=== PATIENT | female | born 1930 | race Caucasian/White ===

== ENCOUNTER 2017-12-21 09:12 | Emergency (ER) | payer OTHER, BC ==
[2017-12-21 09:25] VITALS: BMI 20.6
--- NOTE | 2017-12-21 09:41 | PDOC ---
History of Present Illness - General History Source: Patient Exam Limitations: No Limitations - History of Present Illness Initial Comments: 12/21/17 10:25 The patient is a 87 year old female, with a significant past medical atrial fibrillation s/p pacemaker(on Coumadin), hypertension, hypercholesterolemia, transient TIA, and hypothyroidism who presents to the emergency department with left lower extremity swelling for several weeks. The patient reports intermittent left ankle swelling with associated pain with walking. She denies any associated trauma, recent falls, history of gout, erythema or ecchymosis to the area. The patient rates her pain a 5/10. She states she has been taking Tylenol for her symptoms with mild relief. Patient reports minimal improvement of swelling, which prompted her ED visit today. She denies any recent fever or chills. She denies any chest pain, shortness of breath, diaphoresis, or palpitations. She denies any nausea or vomiting. She denies any recent travel or sick contacts. Allergies: Erythromycin base. Past Surgical History: Pacemaker placement. Bilateral knee replacement. Cholecystectomy. 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 Lives at home. She denies tobacco, ETOH and recreational drug use. PCP: Dr. Gatica <Lucia Castillo - Last Filed: 12/21/17 11:12> <Kathi Wheeler - Last Filed: 12/21/17 11:49> - General Chief Complaint: Chronic pain Stated Complaint: SWOLLEN LT FOOT Time Seen by Provider: 12/21/17 09:36 Past History <Lucia Castillo - Last Filed: 12/21/17 11:12> - Past Medical History Cardiac Disorders: Yes (afib ON Coumadin) COPD: No HTN: Yes Hypercholesterolemia: Yes Thyroid Disease: Yes Other medical history: PACEMAKER - Surgical History Cardiac Surgery: Yes (pacemaker) Cholecystectomy: Yes - Immunization History Immunization Up to Date: Yes - Suicide/Smoking/Psychosocial Hx Smoking Status: No Smoking History: Never smoked Have you smoked in the past 12 months: No Number of Cigarettes Smoked Daily: 0 Hx Alcohol Use: No Drug/Substance Use Hx: No Substance Use Type: None Hx Substance Use Treatment: No <Kathi Wheeler - Last Filed: 12/21/17 11:49> - Past Medical History Allergies/Adverse Reactions: Allergies Allergy/AdvReac Type Severity Reaction Status Date / Time erythromycin base Allergy Verified 12/21/17 09:25 [Erythromycin Base] Home Medications: Ambulatory Orders Diltiazem Cd [Cardizem Cd -] 120 mg PO DAILY 03/07/13 Levothyroxine [Synthroid -] 50 mcg PO DAILY 03/07/13 Metoprolol Succinate [Toprol XL -] 100 mg PO DAILY 03/07/13 Acetaminophen [Tylenol .Regular Strength -] 650 mg PO Q4H PRN #0 tablet Warfarin Na [Coumadin -] 2 mg PO HS 12/21/17 Review of Systems - Review of Systems Able to Perform ROS?: Yes Comments:: 12/21/17 10:25 GENERAL/CONSTITUTIONAL: No: fever, chills, weakness, loss of appetite. HEAD, EYES, EARS, NOSE AND THROAT: No: change in vision, ear pain, discharge, sore throat, throat swelling. CARDIOVASCULAR: No: chest pain, lightheadedness, palpitations, syncope RESPIRATORY: No: cough, shortness of breath, wheezing, hemoptysis, stridor. GASTROINTESTINAL: No: nausea, vomiting, abdominal cramping, diarrhea, rectal bleeding, constipation. GENITOURINARY: No: dysuria, hematuria, frequency, urgency, flank pain. MUSCULOSKELETAL: Yes: left ankle swelling and pain. No: back pain, neck pain, joint pain. SKIN AND BREASTS: No: lesions, pallor, rash or easy bruising. NEUROLOGIC: No: headache, vertigo, paresthesias, weakness ENDOCRINE: No: unexplained weight gain or loss HEMATOLOGIC/LYMPHATIC: No: anemia, easy bleeding, swelling nodes <Castillo,Giomilsy - Last Filed: 12/21/17 11:12> *Physical Exam - Vital Signs Last Vital Signs Temp Pulse Resp BP Pulse Ox 98.0 F 93 H 20 133/83 97 12/21/17 09:22 12/21/17 09:22 12/21/17 09:22 12/21/17 09:22 12/21/17 09:22 - Physical Exam Comments: 12/21/17 10:25 GENERAL: The patient is in no acute distress. HEAD: Normal with no signs of trauma. EYES: PERRLA, EOMI, sclera anicteric, conjunctiva clear. ENT: Ears normal, nares patent, oropharynx clear without exudates. Moist mucous membranes. NECK: Normal range of motion, supple without lymphadenopathy, JVD, or masses. LUNGS: Breath sounds equal, clear to auscultation bilaterally. No wheezes, and no crackles. HEART: Irregularly irregular. No murmurs, rubs or gallops. ABDOMEN: Soft, nontender, normoactive bowel sounds. No guarding, no rebound. EXTREMITIES: Normal range of motion, no edema. No clubbing or cyanosis. No erythema, or tenderness. NEUROLOGICAL: Cranial nerves II through XII grossly intact. Normal speech. No focal neurological deficits. MUSCULOSKELETAL: +Left lower extremity edema. Back non-tender to palpation, no CVA tenderness SKIN: Warm, Dry, normal turgor, no rashes or lesions noted. <Lucia Castillo - Last Filed: 12/21/17 11:12> - Vital Signs Last Vital Signs Temp Pulse Resp BP Pulse Ox 98.0 F 93 H 20 133/83 97 12/21/17 09:22 12/21/17 09:22 12/21/17 09:22 12/21/17 09:22 12/21/17 09:22 <Kathi Wheeler - Last Filed: 12/21/17 11:49> ED Treatment Course - Medications Given in the ED: ED Medications Discontinued Medications Generic Name Dose Route Start Last Admin Trade Name Keyurq PRN Reason Stop Dose Admin Acetaminophen 650 mg 12/21/17 10:06 12/21/17 10:22 Tylenol - PO 12/21/17 10:07 650 mg ONCE ONE Administration <Lucia Castillo - Last Filed: 12/21/17 11:12> Medical Decision Making - Medical Decision Making 12/21/17 10:59 The patient is a 87 yo F h/o atrial fibrillation s/p pacemaker(on Coumadin), hypertension, hypercholesterolemia, TIA and hypothyroidism who presents to the emergency department with left ankle pain and swelling. Patient denies any trauma. Denies bruising. Denies fevers or chills. Denies prior history of gout. Denies prior episodes like this. Patient states her symptoms began a possibly 2 weeks ago. She thought her pain would improve. Given it has not improved she came to the emergency department for evaluation. Admission: Left ankle is swollen, mildly tender to palpation. Patient is able to actively dorsi and plantar flex the left ankle. There is no surrounding erythema. 2+ dorsalis pedis, 2+ posterior tibialis. Sensation intact. Capillary refill less than 2 seconds. Will do: X-ray ankle foot Tylenol for pain Patient was supposed to do her INR today. Will do this for her while she is in the emergency department Pt has no calf swelling or tenderness to suggest dvt 12/21/17 11:47 Xray demonstrates osteopenia No fracture or dislocation Will can wrap Will ask pt to ice and elevate Can follow up with Ortho INR: 2.01 Clinical Impression: arthritis, initial presentation 12/21/17 11:48 <Kathi Wheeler - Last Filed: 12/21/17 11:49> *DC/Admit/Observation/Transfer - Attestations Scribe Attestion: 12/21/17 10:26 Documentation prepared by Lucia Castillo, acting as emergency medical service manager for Kathi Wheeler MD. <Lucia Castillo - Last Filed: 12/21/17 11:12> - Discharge Dispostion Admit: No <Kathi Wheeler - Last Filed: 12/21/17 11:49> Diagnosis at time of Disposition: Arthritis - Discharge Dispostion Disposition: HOME Condition at time of disposition: Stable - Referrals Referrals: Phillip Mcdowell MD [Staff Physician] - - Patient Instructions Printed Discharge Instructions: DI for Arthritis Additional Instructions: Thank you for coming in to the ER Please be sure to follow up with the Orthopedic physician and your primary care physician Return to the ER for any other concerns or complaints
[2017-12-21] MEDS ORDERED: ACETAMINOPHEN 325 MG TABLET (FP) PO ONE (10:06)
[2017-12-21] MEDS ORDERED: ACETAMINOPHEN 325 MG TABLET (FP) ONE (10:20)
[2017-12-21 11:17] LABS: INR 2.1 (0.82-1.09); PROTHROMBIN TIME (PATIENT) 23.7 SEC (9.98-11.88)
[2017-12-21 12:01] VITALS: BP 139/74; PULSE 81; TEMP 97.8
== END 2017-12-21 12:03 | disposition home or self-care (01) ==
LOC: JER 09:12
DX: M19.90 Unspecified osteoarthritis, unspecified site (principal); I48.91 Unspecified atrial fibrillation; I10 Essential (primary) hypertension; Z79.01 Long term (current) use of anticoagulants; Z95.0 Presence of cardiac pacemaker; E78.00 Pure hypercholesterolemia, unspecified; E07.9 Disorder of thyroid, unspecified
CPT/HCPCS: 36415; 73610-TC-LT-FY; 73630-TC-LT; 85610; 99283-25

== ENCOUNTER 2018-04-03 13:47 | Inpatient (IN) | payer OTHER, BC ==
[2018-04-03] MEDS ORDERED: morphine CARPU-JECT 2 MG/1 ML DISP.SYRIN IVPUSH ONE (14:30)
--- NOTE | 2018-04-03 14:45 | PDOC ---
History of Present Illness - General Chief Complaint: Injury Stated Complaint: FALL Time Seen by Provider: 04/03/18 13:54 History Source: Patient Exam Limitations: No Limitations - History of Present Illness Initial Comments: 04/03/18 14:40 Patient is an 87F with history of afib on coumadin, s/p pacemaker placement, HTN , TIA, HLD, hypothyroidism, b/l TKR, s/p cholecystectomy here today complaining of a fall. Patient states that she slipped out of a stool two days ago and landed on her hip and has had pain in her right hip since then. Patient states that she was able to walk after the event. Denies striking head, prodromal symptoms, and syncope. Patient states that she fell because she rocked back too quicklky. Patient had another fall today while walking due to the pain in her right hip. She denies any syncopal symptoms, head trauma and neck pain. Patient states that her leg just collapsed due to the pain. Patient denies fevers, chills, nausea, vomiting, chest pain and shortness of breath. Past History - Past Medical History Allergies/Adverse Reactions: Allergies Allergy/AdvReac Type Severity Reaction Status Date / Time erythromycin base Allergy Verified 04/03/18 15:04 [Erythromycin Base] Home Medications: Ambulatory Orders Metoprolol Tartrate [Lopressor] 250 mg PO DAILY 04/03/18 Warfarin Sodium [Coumadin] 3.5 mg PO DAILY 04/03/18 Cardiac Disorders: Yes (afib ON Coumadin) COPD: No HTN: Yes Hypercholesterolemia: Yes Thyroid Disease: Yes - Surgical History Cardiac Surgery: Yes (pacemaker) Cholecystectomy: Yes - Immunization History Td Vaccination: No TDAP Vaccination: No Immunization Up to Date: Yes - Suicide/Smoking/Psychosocial Hx Smoking Status: No Smoking History: Never smoked Have you smoked in the past 12 months: No Number of Cigarettes Smoked Daily: 0 Information on smoking cessation initiated: No Hx Alcohol Use: No Drug/Substance Use Hx: No Substance Use Type: None Hx Substance Use Treatment: No Review of Systems - Review of Systems Comments:: 04/03/18 14:45 GENERAL/CONSTITUTIONAL: No fever or chills. No weakness. HEAD, EYES, EARS, NOSE AND THROAT: No change in vision. No ear pain or discharge. No sore throat. CARDIOVASCULAR: No chest pain or shortness of breath RESPIRATORY: No cough, wheezing, or hemoptysis. GASTROINTESTINAL: No nausea, vomiting, diarrhea or constipation. GENITOURINARY: No dysuria, frequency, or change in urination. MUSCULOSKELETAL: No joint or muscle swelling or pain. No neck or back pain. SKIN: No rash NEUROLOGIC: No headache, vertigo, loss of consciousness, or change in strength/ sensation. ENDOCRINE: No increased thirst. No abnormal weight change HEMATOLOGIC/LYMPHATIC: No anemia, or history of blood clots. ALLERGIC/IMMUNOLOGIC: No hives or skin allergy. *Physical Exam - Vital Signs Last Vital Signs Temp Pulse Resp BP Pulse Ox 97.4 F L 91 H 18 139/106 94 L 04/03/18 14:06 04/03/18 14:06 04/03/18 14:06 04/03/18 14:06 04/03/18 14:06 - Physical Exam Comments: 04/03/18 14:45 GENERAL: Awake, alert, and fully oriented, in no acute distress R ARM: Abrasions to forearm and wrist. R LEG: Hematoma on lateral leg, 3x3cm area of visible bruising with tense quadricep, nontender compartments, no parathesias, neurovascularly intact. Able to flex right hip. HEAD: No signs of trauma, normocephalic, atraumatic EYES: PERRLA, EOMI, sclera anicteric, conjunctiva clear ENT: Auricles normal inspection, hearing grossly normal, nares patent, oropharynx clear without exudates. Moist mucosa NECK: Normal ROM, supple, no lymphadenopathy, JVD, or masses, no midline tenderess LUNGS: No distress, speaks full sentences, clear to auscultation bilaterally HEART: Regular rate and rhythm, normal S1 and S2, no murmurs, rubs or gallops, peripheral pulses normal and equal bilaterally. ABDOMEN: Soft, nontender, normoactive bowel sounds. No guarding, no rebound. No masses EXTREMITIES: Normal inspection, Normal range of motion, no edema. No clubbing or cyanosis. NEUROLOGICAL: Cranial nerves II through XII grossly intact. Normal speech, no focal sensorimotor deficits SKIN: Warm, Dry, normal turgor, no rashes or lesions noted. ED Treatment Course - LABORATORY CBC & Chemistry Diagram: 04/03/18 14:45 04/03/18 16:15 - RADIOLOGY Radiology Studies Ordered: Category Date Time Status CHEST X-RAY PORTABLE* [RAD] Stat Radiology 04/03/18 14:29 Ordered FEMUR-RIGHT [RAD] Stat Radiology 04/03/18 14:30 Ordered HIP & PELVIS-RIGHT [RAD] Stat Radiology 04/03/18 14:30 Ordered Medical Decision Making - Medical Decision Making 04/03/18 14:48 Patient is 87F with history of afib (on coumadin), s/p pacemaker, HTN, TIA, HLD , hypothyroidism, b/l TKR, cholecystectomy here today complaining of hip pain after a fall. No syncopal symptom reported, patient alert and oriented, but will evaluate heart. No signs of head trauma, denies head trauma, will not head ct. Nexus clears spine. Will evaluate leg with x-rays. Given 2mg morphine for pain. Compartment syndrome considered, but believe less likely due to lack of pain from patient. Concerned for large hematoma secondary to coumadin use. EKG shows afib with rate of 95. No st elevations/depressions. Normal axis. Normal QRS/QTc intervals. 04/03/18 16:40 Laboratory Tests 04/03/18 04/03/18 14:45 14:45 WBC 7.4 Hgb 14.0 Plt Count 238 INR > 15.00 H* CBC normal. INR over range. Given development of hematoma in right leg and concern for possible development of compartment syndrome, will give vitamin k and FFP. CT head negative. Admitted to med/surg via [facility]. 04/03/18 18:05 CT negative for fracture, does show hematoma. *DC/Admit/Observation/Transfer Diagnosis at time of Disposition: Hematoma, Supratherapeutic INR - Discharge Dispostion Condition at time of disposition: Stable Decision to Admit order: Yes - Referrals - Patient Instructions - Post Discharge Activity
[2018-04-03] MEDS ORDERED: MORPHINE SULFATE 2 MG/ML VIAL ONE (14:48)
--- NOTE | 2018-04-03 14:49 | PDOC ---
Attending Attestation - HPI HPI: 04/03/18 15:34 The patient is a 85 year old female, with a significant past medical history of Afib s/p pacemaker (on Coumadin), HTN, TIA, HLD, hypothyroidism, cholecystectomy , who presents to the emergency department with right hip pain s/p slipping and falling out of her seat a couple of days ago, as well as, a mechanical fall today secondary to her right hip pain. The patient states she noticed pain to the right hip with walking today which resulted in her falling. She denies numbness or tingling. The patient denies chest pain, shortness of breath, headache and dizziness. The patient denies fever, chills, nausea, vomit, diarrhea and constipation. The patient denies dysuria, frequency, urgency and hematuria. Allergies: erythromycin base - Medical Decision Making 04/03/18 15:34 Documentation prepared by Iwona Melo, acting as internist medical doctor md for Kathi Wheeler MD <Iwona Melo - Last Filed: 04/03/18 15:34> - Resident Resident Name: George Garcia - ED Attending Attestation I have performed the following: I have examined & evaluated the patient, The case was reviewed & discussed with the resident, I agree w/resident's findings & plan, Exceptions are as noted - Physicial Exam PE: 04/03/18 16:26 GENERAL: The patient is in no acute distress. HEAD: Normal with no signs of trauma. EYES: PERRLA, EOMI, sclera anicteric, conjunctiva clear. ENT: Ears normal, nares patent, oropharynx clear without exudates. Moist mucous membranes. NECK: Normal range of motion, supple without lymphadenopathy, JVD, or masses. LUNGS: Breath sounds equal, clear to auscultation bilaterally. No wheezes, and no crackles. HEART:Regular rate and rhythm, normal S1 and S2 without murmur, rub or gallop. ABDOMEN: Soft, nontender, normoactive bowel sounds. No guarding, no rebound. No masses palpable. EXTREMITIES: Normal range of motion, right thigh swelling, right hip bruising NEUROLOGICAL: Cranial nerves II through XII grossly intact. Normal speech. No focal neurological deficits. MUSCULOSKELETAL: Back non-tender to palpation SKIN: Warm, Dry, normal turgor, no rashes or lesions noted. - Medical Decision Making 04/03/18 14:49 EKG: Afib rate of 95 bpm, axis nml, intervals nml, no st elevations or depressions 04/03/18 16:27 CT head: no ICH, thalamic infarct indeteminant age 0704/03/18 16:28 Laboratory Tests 04/03/18 04/03/18 14:45 14:45 WBC 7.4 Hgb 14.0 Hct 41.3 Plt Count 238 INR > 15.00 H* Right thigh hematoma Will give FFP and Vit K Will admit Will monitor for compartment syndrome <Kathi Wheeler - Last Filed: 04/05/18 08:28>
[2018-04-03 14:52] LABS: BASO % 0.8 % (0-2.0); EOS % 1.5 % (0-4.5); HEMATOCRIT 41.3 % (32.4-45.2); LYMPH % 11.6 % (8-40); MCH 32.9 pg (25.7-33.7); MCHC 33.8 g/dl (32.0-36.0); MEAN CELL VOLUME 97.2 fl (80-96); MEAN PLT VOLUME 8.2 fl (7.5-11.1); MONO % 7.1 % (3.8-10.2); PLATELET COUNT 238 K/MM3 (134-434); RBC 4.25 M/mm3 (3.60-5.2); RDW 13.5 % (11.6-15.6); WHITE BLOOD COUNT 7.4 K/mm3 (4.0-10.0)
[2018-04-03 15:43] LABS: INR > 15.00 (0.82-1.09)
[2018-04-03] MEDS ORDERED: PHYTONADIONE 10 MG/1 ML AMP IVPB ONE (15:52)
[2018-04-03] MEDS ORDERED: PHYTONADIONE 10 MG/1 ML AMP ONE (16:24)
[2018-04-03 17:17] LABS: ALBUMIN 3.5 g/dl (3.4-5.0); ANION GAP 10 (8-16); BILIRUBIN,TOTAL 0.5 mg/dL (0.2-1.0); BLOOD UREA NITROGEN 19 mg/dL (7-18); CALCIUM 8.9 mg/dL (8.5-10.1); CHLORIDE 104 mmol/L (98-107); CO2 26 mmol/L (21-32); CREATININE 0.7 mg/dL (0.55-1.02); GLUCOSE,RANDOM 139 mg/dL (74-106); MAGNESIUM 2.3 mg/dL (1.8-2.4); PHOSPHOROUS 4.4 mg/dL (2.5-4.9); POTASSIUM 3.9 mmol/L (3.5-5.1); SGOT/AST 25 U/L (15-37); SGPT/ALT 28 U/L (12-78); SODIUM 140 mmol/L (136-145)
[2018-04-03 17:19] LABS: ALK PHOS 91 U/L (45-117)
--- NOTE | 2018-04-03 19:37 | HP ---
Admitting History and Physical - Primary Care Physician PCP: Lorie Cuevas - Admission History of Present Illness: 85 year old female, with a significant past medical history of Afib s/p pacemaker (on Coumadin), HTN, TIA, HLD, hypothyroidism, cholecystectomy, who presents to the emergency department with right hip pain s/p slipping and falling out of her seat a couple of days ago, as well as, a mechanical fall today secondary to her right hip pain. The patient states she noticed pain to the right hip with walking today which resulted in her falling. She denies numbness or tingling. The patient denies chest pain, shortness of breath, headache and dizziness. The patient denies fever, chills, nausea, vomit, diarrhea and constipation. The patient denies dysuria, frequency, urgency and hematuria. 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 Cardiovascular: Yes: AFIB, HTN, Hyperlipdemia - Past Surgical History Past Surgical History: Yes: Permanent Pacemaker - Smoking History Smoking history: Never smoked Have you smoked in the past 12 months: No Aproximately how many cigarettes per day: 0 - Alcohol/Substance Use Hx Alcohol Use: No Home Medications - Allergies Allergies/Adverse Reactions: Allergies Allergy/AdvReac Type Severity Reaction Status Date / Time erythromycin base Allergy Verified 04/03/18 15:04 [Erythromycin Base] - Home Medications Home Medications: Ambulatory Orders Diltiazem Cd [Cardizem Cd -] 120 04/03/18 Levothyroxine Sodium [Levo-T] 50 mcg PO 04/03/18 Metoprolol Tartrate [Lopressor] 225 mg PO DAILY 04/03/18 Warfarin Sodium [Coumadin] 3.5 mg PO HS 04/03/18 Physical Examination Vital Signs: Vital Signs Temperature 97.4 F L 04/03/18 14:06 Pulse Rate 92 H 04/03/18 16:35 Respiratory Rate 18 04/03/18 16:35 Blood Pressure 108/72 04/03/18 16:39 O2 Sat by Pulse Oximetry (%) 95 04/03/18 16:35 Constitutional: Yes: No Distress HENT: Yes: Atraumatic Neck: Yes: Supple Cardiovascular: Yes: Regular Rate and Rhythm Respiratory: Yes: CTA Bilaterally Gastrointestinal: Yes: Normal Bowel Sounds Extremities: Yes: Other (bruis R fore arm hematoma R thigh) Neurological: Yes: Alert, Oriented Labs: CBC, BMP 04/03/18 14:45 04/03/18 16:15 Problem List - Problems (1) Hematoma Assessment/Plan: R franca monitor hold coumadin daily pt/inr Code(s): T14.8XXA - OTHER INJURY OF UNSPECIFIED BODY REGION, INITIAL ENCOUNTER (2) Supratherapeutic INR Code(s): R79.1 - ABNORMAL COAGULATION PROFILE (3) HTN (hypertension) Assessment/Plan: on meds stable Code(s): I10 - ESSENTIAL (PRIMARY) HYPERTENSION Qualifiers: Hypertension type: essential hypertension Qualified Code(s): I10 - Essential (primary) hypertension (4) Hyperlipidemia Code(s): E78.5 - HYPERLIPIDEMIA, UNSPECIFIED Qualifiers: Hyperlipidemia type: unspecified Qualified Code(s): E78.5 - Hyperlipidemia , unspecified (5) Fall Assessment/Plan: tripped and fell pt eval Code(s): W19.XXXA - UNSPECIFIED FALL, INITIAL ENCOUNTER Qualifiers: Encounter type: sequela Qualified Code(s): W19.XXXS - Unspecified fall, sequela Assessment/Plan Laboratory Tests 04/03/18 04/03/18 04/03/18 14:45 14:45 14:45 WBC 7.4 RBC 4.25 Hgb 14.0 Hct 41.3 MCV 97.2 H MCH 32.9 MCHC 33.8 RDW 13.5 Plt Count 238 MPV 8.2 Absolute Neuts (auto) 5.8 Neutrophils % 79.0 Lymphocytes % 11.6 D Monocytes % 7.1 Eosinophils % 1.5 Basophils % 0.8 Nucleated RBC % 0 PT with INR 182.20 H INR > 15.00 H* Sodium Cancelled Potassium Cancelled Chloride Cancelled Carbon Dioxide Cancelled Anion Gap Cancelled BUN Cancelled Creatinine Cancelled Creat Clearance w eGFR Cancelled Random Glucose Cancelled Calcium Cancelled Phosphorus Magnesium Cancelled Total Bilirubin Cancelled AST Cancelled ALT Cancelled Alkaline Phosphatase Cancelled Creatine Kinase Cancelled Troponin I Cancelled Total Protein Cancelled Albumin Cancelled Blood Type Antibody Screen 04/03/18 04/03/18 16:15 16:15 WBC RBC Hgb Hct MCV MCH MCHC RDW Plt Count MPV Absolute Neuts (auto) Neutrophils % Lymphocytes % Monocytes % Eosinophils % Basophils % Nucleated RBC % PT with INR INR Sodium 140 Potassium 3.9 Chloride 104 Carbon Dioxide 26 Anion Gap 10 BUN 19 H Creatinine 0.7 Creat Clearance w eGFR > 60 Random Glucose 139 H Calcium 8.9 Phosphorus 4.4 Magnesium 2.3 Total Bilirubin 0.5 AST 25 ALT 28 Alkaline Phosphatase 91 Creatine Kinase 135 Troponin I < 0.02 Total Protein 6.0 L Albumin 3.5 Blood Type A POSITIVE Antibody Screen Negative Active Medications Generic Name Dose Route Start Last Admin Trade Name Freq PRN Reason Stop Dose Admin Acetaminophen 650 mg 04/03/18 19:45 Tylenol - PO Q6H PRN FEVER Levothyroxine Sodium 50 mcg 04/04/18 07:00 04/04/18 06:02 Synthroid - PO 50 mcg DAILY@0700 NASRA Administration Metoprolol Tartrate 100 mg 04/04/18 10:00 04/04/18 10:08 Lopressor - PO 100 mg DAILY NASRA Administration Morphine Sulfate 2 mg 04/03/18 21:56 Morphine Sulfate IVPUSH Q4H PRN PAIN LEVEL 4 - 6 Pt Own Med (Cardizem 1 each 04/04/18 10:00 04/04/18 10:08 Xt 120mg) PO 1 each DAILY NASRA Administration
[2018-04-03] MEDS ORDERED: ACETAMINOPHEN 325 MG TABLET (FP) PO PRN (19:45)
--- NOTE | 2018-04-03 20:21 | EKG ---
Test Reason : Blood Pressure : / mmHG Vent. Rate : 095 BPM Atrial Rate : 102 BPM P-R Int : 000 ms QRS Dur : 086 ms QT Int : 368 ms P-R-T Axes : 000 -12 -21 degrees QTc Int : 462 ms ATRIAL FIBRILLATION MODERATE VOLTAGE CRITERIA FOR LVH, MAY BE NORMAL VARIANT ABNORMAL ECG WHEN COMPARED WITH ECG OF 19-JUL-2016 08:23, ELECTRONIC DEMAND PACING IS NO LONGER PRESENT NONSPECIFIC T WAVE ABNORMALITY NOW EVIDENT IN LATERAL LEADS Confirmed by MD CHARLES, NAYAN ([id number]) on 04/03/2018 8:21:38 PM Referred By: Confirmed By:NAYAN SOTO MD
[2018-04-03 20:28] VITALS: BMI 20.9
[2018-04-03 21:33] LABS: INR 2.75 (0.82-1.09); PROTHROMBIN TIME (PATIENT) 31.1 SEC (9.7-13.0)
[2018-04-03] MEDS ORDERED: MORPHINE SULFATE 2 MG/ML VIAL IVPUSH PRN (21:56)
[2018-04-04] MEDS ORDERED: PT OWN MED DRAWER 7, Y5N ONE ×2 (04:08→09:53)
[2018-04-04] MEDS: LEVOTHYROXINE NA 50 MCG TABLET (FP) PO SCH (06:02)
[2018-04-04 07:27] LABS: BASO % 0.7 % (0-2.0); EOS % 0.6 % (0-4.5); HEMOGLOBIN 11.6 GM/dL (10.7-15.3); LYMPH % 12.9 % (8-40); MCHC 35.1 g/dl (32.0-36.0); MEAN CELL VOLUME 96.8 fl (80-96); MEAN PLT VOLUME 8.7 fl (7.5-11.1); MONO % 8.3 % (3.8-10.2); NEUT % 77.5 % (42.8-82.8); PLATELET COUNT 187 K/MM3 (134-434); RBC 3.41 M/mm3 (3.60-5.2); RDW 13.7 % (11.6-15.6); WHITE BLOOD COUNT 6.4 K/mm3 (4.0-10.0)
[2018-04-04 07:54] LABS: INR 1.14 (0.82-1.09); PROTHROMBIN TIME (PATIENT) 12.9 SEC (9.7-13.0)
[2018-04-04 07:58] LABS: ACTIVATED PTT 30.8 SECONDS (25.2-36.5)
[2018-04-04 08:05] LABS: ANION GAP 7 (8-16); BLOOD UREA NITROGEN 15 mg/dL (7-18); CALCIUM 8.5 mg/dL (8.5-10.1); CHLORIDE 103 mmol/L (98-107); CO2 29 mmol/L (21-32); CREATININE 0.5 mg/dL (0.55-1.02); GLUCOSE,RANDOM 92 mg/dL (74-106); POTASSIUM 3.5 mmol/L (3.5-5.1); SODIUM 139 mmol/L (136-145)
[2018-04-04] MEDS ORDERED: METOPROLOL TARTRATE 50 MG TABLET (FP) PO SCH (10:00)
[2018-04-04] MEDS ORDERED: METOPROLOL TARTRATE 25 MG TABLET (FP) PO SCH ×2 (10:00)
[2018-04-04] MEDS: [UNRECOGNIZED DRUG - OTHER] PO SCH (10:08)
--- NOTE | 2018-04-04 10:50 | CONSULT ---
Consult Consult Specialty:: General Surgery Referred by:: Dr. 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 She landed on her right side at that time, and knew she was sore, but didn't think too much of it and did not look for any bruising. She noticed Tuesday she was favoring her right leg a bit and limping slightly. Tuesday, she drove to [employer], and was walking toward the building on the pavement, when she lost her footing and/or right leg gave out on her, and she fell again, on her right side, abrading and bruising her right elbow and heel of hand and right thigh/leg. She drove herself home and cleaned herself up, but spoke with her niece, who advised her to go to the ER, so she called ambulance to bring her in. In the ER, she was noted to have a swollen, painful and tender right thigh and be bruised as well. Her wbc was normal, but INR was >15, and she was given vitamin K and one unit FFP was ordered. Imaging studies were done, with RLE CT showing quadriceps with hematoma /swelling/edema but no fracture. She has been admitted to medicine and started PT; surgery was asked to assess. INR was repeated at 2.75 last night and 1.14 this am. PTT is normal. Hb hydrated from 14 to 11.6. She is seen and examined in bed. She worked with PT on stairs earlier. She has eaten lunch. She has minimal pain/discomfort, but her right hip and thigh do hurt when she is standing and walking. She never looked at the area before coming to hospital, so had not noticed the bruise or swelling herself. She does not use pain medication at home for arthritis and does not use a cane or walker. - History Source History Provided By: Patient Limitations to Obtaining History: No Limitations - Past Medical History NETWORK LIAISON: Yes: CVA (no residual), TIA Cardio/Vascular: Yes: AFIB, HTN, Hyperlipdemia Reproductive: Yes: Postmenopausal Musculoskeletal: Yes: Osteoarthritis Endocrine: Yes: Hypothyroidism - Past Surgical History Past Surgical History: Yes: Permanent Pacemaker - Alcohol/Substance Use Hx Alcohol Use: Yes (occasional) History of Substance Use: reports: None - Smoking History Smoking history: Never smoked (briefly in teens) Have you smoked in the past 12 months: No - Social History ADL: Independent Home Medications - Allergies Allergies/Adverse Reactions: Allergies Allergy/AdvReac Type Severity Reaction Status Date / Time erythromycin base Allergy Verified 04/03/18 15:04 [Erythromycin Base] - Home Medications Home Medications: Ambulatory Orders Diltiazem Cd [Cardizem Cd -] 120 04/03/18 Levothyroxine Sodium [Levo-T] 50 mcg PO 04/03/18 Metoprolol Tartrate [Lopressor] 225 mg PO DAILY 04/03/18 Warfarin Sodium [Coumadin] 3.5 mg PO HS 04/03/18 Family Disease History - Family Disease History Family Disease History: CA: Father (throat (asbestos exposure, smoker)), Other: Mother (had a stroke) Review of Systems - Review of Systems Constitutional: denies: Chills, Fever Eyes: reports: Other (wears glasses). denies: Recent Change in Vision HENT: reports: Hearing Loss (bilateral hearing aids). denies: Difficult Swallowing, Throat Pain Neck: denies: Swollen Glands, Tenderness Cardiovascular: denies: Chest Pain, Palpitations Respiratory: denies: Cough, SOB Gastrointestinal: denies: Abdominal Pain, Constipation, Diarrhea, Nausea Genitourinary: reports: Incontinence (urinary at times). denies: Burning, Dysuria Musculoskeletal: reports: Joint Pain (R hip), Muscle Pain (R thigh) Integumentary: reports: Bruising (R forearm and lateral upper thigh), Wound ( abrasions on right elbow/hand). denies: Rash Neurological: reports: Unsteady Gait (R leg was bothering her, gave out). denies: Dizziness, Headache Hematology/Lymphatic: reports: Easily Bruised. denies: Excessive Bleeding Physical Exam Vital Signs: Vital Signs Temperature 98.8 F 04/04/18 06:00 Pulse Rate 101 H 04/04/18 06:00 Respiratory Rate 20 04/04/18 06:00 Blood Pressure 136/60 04/04/18 06:00 O2 Sat by Pulse Oximetry (%) 96 04/03/18 21:00 Constitutional: Yes: No Distress, Calm, Thin Eyes: Yes: Conjunctiva Clear, EOM Intact HENT: Yes: Atraumatic, Normocephalic Neck: Yes: Supple, Trachea Midline Cardiovascular: Yes: Pulse Irregular (irregularly irregular). No: Bradycardia, Tachycardia, Murmur Respiratory: Yes: Regular, CTA Bilaterally Gastrointestinal: Yes: Normal Bowel Sounds, Soft. No: Tenderness ...Rectal Exam: Yes: Deferred Renal/: No: CVA Tenderness - Left, CVA Tenderness - Right Musculoskeletal: Yes: Muscle Pain (right thigh moderately swollen, mildly firm, mildly tender; compartment soft, no skin abrasions). No: Joint Swelling Extremities: No: Cool, Cyanosis Edema: No Peripheral Pulses WNL: Yes (present but irregular) Integumentary: Yes: Bruising (ecchymotic spot at right upper lateral thigh over greater trochanter area, somewhat firm underlying), Other (small abrasions with bruising R elbow and heel of hand area, dressed) Wound/Incision: Yes: Dressing Dry and Intact (R forearm with small spot of dried blood strikethrough), Dressing Removed (small abrasion right elbow clean and dry, also one on heel of hand - bruising at proximal forearm from elbow to mid-arm; dressings replaced with telfa and wrap on elbow, telfa and tegaderm on hand). No: Draining, Bleeding Neurological: Yes: Alert, Oriented Psychiatric: Yes: Alert, Oriented Labs: CBC, BMP 04/04/18 06:00 04/04/18 06:00 CMP Sodium 139 mmol/L (136-145) 04/04/18 06:00 Potassium 3.5 mmol/L (3.5-5.1) 04/04/18 06:00 Chloride 103 mmol/L (98-107) 04/04/18 06:00 Carbon Dioxide 29 mmol/L (21-32) 04/04/18 06:00 Anion Gap 7 (8-16) L 04/04/18 06:00 BUN 15 mg/dL (7-18) 04/04/18 06:00 Creatinine 0.5 mg/dL (0.55-1.02) L 04/04/18 06:00 Creat Clearance w eGFR > 60 (>60) 04/04/18 06:00 Random Glucose 92 mg/dL (74-106) 04/04/18 06:00 Calcium 8.5 mg/dL (8.5-10.1) 04/04/18 06:00 Phosphorus 4.4 mg/dL (2.5-4.9) 04/03/18 16:15 Magnesium 2.3 mg/dL (1.8-2.4) 04/03/18 16:15 Total Bilirubin 0.5 mg/dL (0.2-1.0) 04/03/18 16:15 AST 25 U/L (15-37) 04/03/18 16:15 ALT 28 U/L (12-78) 04/03/18 16:15 Alkaline Phosphatase 91 U/L (45-117) 04/03/18 16:15 Creatine Kinase 135 IU/L (26-192) 04/03/18 16:15 Troponin I < 0.02 ng/ml (0.00-0.05) 04/03/18 16:15 Total Protein 6.0 g/dl (6.4-8.2) L 04/03/18 16:15 Albumin 3.5 g/dl (3.4-5.0) 04/03/18 16:15 INR, PTT INR 1.14 (0.82-1.09) D 04/04/18 06:00 PT was >15 on arrival, 2.75 yesterday pm, after vit K, prior to FFP transfusion PTT normal today H/H stable wbc normal K+ low Imaging - Results Cat Scan: Report Reviewed, Image Reviewed (images personally reviewed - quadriceps muscle with swelling/hematoma/edema, nothing subcutaneous, no bright density suggesting fresh blood) Problem List - Problems (1) Contusion of right thigh Assessment/Plan: admitted to medicine right quadriceps hematoma s/p fall x2 no evidence compartment syndrome minor abrasions RUE supratherapeutic INR corrected bruising and hematoma expected to resolve slowly over time - bruising/ discoloration may descend by gravity into lower leg/ankle region over time may take a month or more for hematoma to be reabsorbed aim to keep INR no more than 2-3, close monitoring no aspirin, NSAIDs pain medication prn - tylenol first line, minimize narcotics warm compresses may be used prn high fall risk - agree with physical therapy no surgical or invasive intervention indicated Thank you for the opportunity to participate in the care of this patient. Code(s): S70.11XA - CONTUSION OF RIGHT THIGH, INITIAL ENCOUNTER Qualifiers: Encounter type: initial encounter Qualified Code(s): S70.11XA - Contusion of right thigh, initial encounter (2) Hematoma Code(s): T14.8XXA - OTHER INJURY OF UNSPECIFIED BODY REGION, INITIAL ENCOUNTER (3) Fall Code(s): W19.XXXA - UNSPECIFIED FALL, INITIAL ENCOUNTER Qualifiers: Encounter type: sequela Qualified Code(s): W19.XXXS - Unspecified fall, sequela (4) Supratherapeutic INR Assessment/Plan: now in normal range would resume home dose (3.5mg) until therapeutic again - NO loading monitor closely as INR rises to keep no more than 2-3 ok for prophylactic lovenox dosing until INR above 2 Code(s): R79.1 - ABNORMAL COAGULATION PROFILE (5) Atrial fibrillation Code(s): I48.91 - UNSPECIFIED ATRIAL FIBRILLATION Qualifiers: Atrial fibrillation type: unspecified Qualified Code(s): I48.91 - Unspecified atrial fibrillation (6) HTN (hypertension) Code(s): I10 - ESSENTIAL (PRIMARY) HYPERTENSION Qualifiers: Hypertension type: essential hypertension Qualified Code(s): I10 - Essential (primary) hypertension (7) Hyperlipidemia Code(s): E78.5 - HYPERLIPIDEMIA, UNSPECIFIED Qualifiers: Hyperlipidemia type: unspecified Qualified Code(s): E78.5 - Hyperlipidemia , unspecified (8) Hypothyroidism Code(s): E03.9 - HYPOTHYROIDISM, UNSPECIFIED Qualifiers: Hypothyroidism type: unspecified Qualified Code(s): E03.9 - Hypothyroidism , unspecified (9) H/O: CVA (cerebrovascular accident) Code(s): Z86.73 - PRSNL HX OF TIA (TIA), AND CEREB INFRC W/O RESID DEFICITS
--- NOTE | 2018-04-04 13:59 | PN ---
Progress Note, Physician - Current Medication List Current Medications: Active Medications Acetaminophen (Tylenol -) 650 mg PO Q6H PRN PRN Reason: FEVER Levothyroxine Sodium (Synthroid -) 50 mcg PO DAILY@0700 [facility] Last Admin: 04/04/18 06:02 Dose: 50 mcg Metoprolol Tartrate (Lopressor -) 100 mg PO DAILY [facility] Last Admin: 04/04/18 10:08 Dose: 100 mg Morphine Sulfate (Morphine Sulfate) 2 mg IVPUSH Q4H PRN PRN Reason: PAIN LEVEL 4 - 6 Pt Own Med (Cardizem (Xt 120mg)) 1 each PO DAILY [facility] Last Admin: 04/04/18 10:08 Dose: 1 each - Objective Vital Signs: Vital Signs Temperature 98.8 F 04/04/18 06:00 Pulse Rate 101 H 04/04/18 06:00 Respiratory Rate 20 04/04/18 06:00 Blood Pressure 136/60 04/04/18 06:00 O2 Sat by Pulse Oximetry (%) 96 04/03/18 21:00 Constitutional: Yes: No Distress HENT: Yes: Atraumatic Neck: Yes: Supple Cardiovascular: Yes: Regular Rate and Rhythm Respiratory: Yes: CTA Bilaterally Gastrointestinal: Yes: Normal Bowel Sounds Extremities: Yes: Other (R thigh hematoma) Neurological: Yes: Alert, Oriented Labs: CBC, BMP 04/04/18 06:00 04/04/18 06:00 INR, PTT INR 1.14 (0.82-1.09) D 04/04/18 06:00 Problem List - Problems (1) Hematoma Assessment/Plan: R franca monitor start coumadin daily pt/inr surgical consult noted Code(s): T14.8XXA - OTHER INJURY OF UNSPECIFIED BODY REGION, INITIAL ENCOUNTER (2) Supratherapeutic INR Code(s): R79.1 - ABNORMAL COAGULATION PROFILE (3) HTN (hypertension) Assessment/Plan: on meds stable Code(s): I10 - ESSENTIAL (PRIMARY) HYPERTENSION Qualifiers: Hypertension type: essential hypertension Qualified Code(s): I10 - Essential (primary) hypertension (4) Hyperlipidemia Code(s): E78.5 - HYPERLIPIDEMIA, UNSPECIFIED Qualifiers: Hyperlipidemia type: unspecified Qualified Code(s): E78.5 - Hyperlipidemia , unspecified (5) Fall Assessment/Plan: tripped and fell pt eval Code(s): W19.XXXA - UNSPECIFIED FALL, INITIAL ENCOUNTER Qualifiers: Encounter type: sequela Qualified Code(s): W19.XXXS - Unspecified fall, sequela
[2018-04-04] MEDS: WARFARIN NA 5 MG TABLET (UD) PO SCH (17:54)
--- NOTE | 2018-04-04 18:55 | CON.CARD ---
Consult Consult Specialty:: cardiology Reason for Consultation:: hx AF; s/p fall - History of Present Illness Chief Complaint: Pt A&Oz3; no chest pain, palpitations, or dizziness; + pain at hip (s/p fall) History of Present Illness: Patient is an 87 white woman with history of afib on coumadin, s/p pacemaker placement, HTN, TIA, HLD, hypothyroidism, b/l TKR, s/p cholecystectomy here today complaining of a fall. Patient states that she slipped out of a stool two days ago and landed on her hip and has had pain in her right hip since then. Patient states that she was able to walk after the event. Denies striking head, prodromal symptoms, and syncope. Patient states that she fell because she rocked back too quickly. Patient had another fall today while walking due to the pain in her right hip. She denies any syncopal symptoms, head trauma and neck pain. Patient states that her leg just collapsed due to the pain. Patient denies fevers, chills, nausea, vomiting, chest pain and shortness of breath. - History Source History Provided By: Patient, Medical Record Limitations to Obtaining History: No Limitations - Past Medical History MAIL ROOM: Yes: TIA Cardio/Vascular: Yes: AFIB, HTN, Hyperlipdemia Reproductive: Yes: Postmenopausal ...: No Heme/Onc: No: Anemia Psych: Yes: Anxiety Musculoskeletal: Yes: Osteoarthritis Endocrine: Yes: Hypothyroidism - Past Surgical History Past Surgical History: Yes: Permanent Pacemaker - Alcohol/Substance Use Hx Alcohol Use: No History of Substance Use: reports: None - Smoking History Smoking history: Never smoked Have you smoked in the past 12 months: No Aproximately how many cigarettes per day: 0 - Social History ADL: Independent Home Medications - Allergies Allergies/Adverse Reactions: Allergies Allergy/AdvReac Type Severity Reaction Status Date / Time erythromycin base Allergy Verified 04/03/18 15:04 [Erythromycin Base] - Home Medications Home Medications: Ambulatory Orders Diltiazem Cd [Cardizem Cd -] 120 04/03/18 Levothyroxine Sodium [Levo-T] 50 mcg PO 04/03/18 Metoprolol Tartrate [Lopressor] 225 mg PO DAILY 04/03/18 Warfarin Sodium [Coumadin] 3.5 mg PO HS 04/03/18 Family Disease History - Family Disease History Family Disease History: CA: Father (throat (asbestos exposure, smoker)), Other: Mother (had a stroke) Review of Systems - Review of Systems Constitutional: reports: No Symptoms Eyes: reports: No Symptoms HENT: reports: No Symptoms Neck: reports: No Symptoms Cardiovascular: reports: No Symptoms Respiratory: reports: No Symptoms Gastrointestinal: reports: No Symptoms Genitourinary: reports: No Symptoms Breasts: reports: No Symptoms Reported Musculoskeletal: reports: Joint Pain, Muscle Pain Integumentary: reports: No Symptoms Neurological: reports: No Symptoms Endocrine: reports: No Symptoms Hematology/Lymphatic: reports: No Symptoms Psychiatric: reports: No Symptoms - Risk Factors Known Risk Factors: Yes: Age, Hypertension Vital Signs: Vital Signs Temperature 98.7 F 04/04/18 17:00 Pulse Rate 95 H 04/04/18 17:00 Respiratory Rate 18 04/04/18 17:00 Blood Pressure 117/67 04/04/18 17:00 O2 Sat by Pulse Oximetry (%) 96 04/04/18 09:00 Constitutional: Yes: Calm Eyes: Yes: WNL HENT: Yes: WNL Neck: Yes: WNL Respiratory: Yes: WNL Gastrointestinal: Yes: WNL Renal/: No: Anuria Cardiovascular: Yes: Pulse Irregular JVD: No Carotid Bruit: No PMI: Non-Displaced Heart Sounds: Yes: S1 (varies in intensity) Murmur: Yes: Systolic Murmur Musculoskeletal: Yes: Joint Stiffness, Muscle Pain Extremities: Yes: Cool Edema: No Peripheral Pulses WNL: Yes Integumentary: Yes: Bruising Neurological: Yes: WNL Psychiatric: Yes: WNL - Other Data Labs, Other Data: CBC, BMP 04/04/18 06:00 04/04/18 06:00 INR, PTT INR 1.14 (0.82-1.09) D 04/04/18 06:00 Abnormal Lab Results 04/07/18 06:30 PT with INR 20.10 H INR 1.78 H Ejection Fraction %: LVEF > or = 40 % Imaging - Results EKG: Image Reviewed (AF, controlled VR) Problem List - Problems (1) Contusion of right thigh Code(s): S70.11XA - CONTUSION OF RIGHT THIGH, INITIAL ENCOUNTER Qualifiers: Encounter type: initial encounter Qualified Code(s): S70.11XA - Contusion of right thigh, initial encounter (2) Fall Assessment/Plan: denies syncope; attributed to joint and muscle weakness. F/u with surgeon, physical therapist. Code(s): W19.XXXA - UNSPECIFIED FALL, INITIAL ENCOUNTER Qualifiers: Encounter type: sequela Qualified Code(s): W19.XXXS - Unspecified fall, sequela (3) Hematoma Code(s): T14.8XXA - OTHER INJURY OF UNSPECIFIED BODY REGION, INITIAL ENCOUNTER (4) Supratherapeutic INR Code(s): R79.1 - ABNORMAL COAGULATION PROFILE (5) Arthritis Code(s): M19.90 - UNSPECIFIED OSTEOARTHRITIS, UNSPECIFIED SITE (6) Atrial fibrillation Assessment/Plan: On metoprolol (change to ER for better 24 hour coverage). Restart warfarin when cleared by surgeon; may consider NOAC. ECHO for LVEF, chamber sizes, valve status. Keep K 4-4.5, Mg 2-2.4, PO4 2.5-3.5. TSH. Pain management. Code(s): I48.91 - UNSPECIFIED ATRIAL FIBRILLATION Qualifiers: Atrial fibrillation type: unspecified Qualified Code(s): I48.91 - Unspecified atrial fibrillation
[2018-04-04] MEDS ORDERED: METOPROLOL TARTRATE 25 MG TABLET (FP) PO ONE (18:57)
[2018-04-04] MEDS: HEPARIN NA (PORCINE) 5,000 UNITS/ML 1ML VIAL SQ SCH (22:37)
[2018-04-05] MEDS: LEVOTHYROXINE NA 50 MCG TABLET (FP) PO SCH (06:48)
[2018-04-05 07:36] LABS: INR 1.07 (0.82-1.09); PROTHROMBIN TIME (PATIENT) 12.1 SEC (9.7-13.0)
[2018-04-05] MEDS ORDERED: PT OWN MED DRAWER 7, Y5N ONE (10:53)
[2018-04-05] MEDS: HEPARIN NA (PORCINE) 5,000 UNITS/ML 1ML VIAL SQ SCH ×2 (11:01→21:24)
[2018-04-05] MEDS: [UNRECOGNIZED DRUG - OTHER] PO SCH (11:01)
--- NOTE | 2018-04-05 12:26 | PN ---
Progress Note, Physician History of Present Illness: Patient is an 87 white woman with history of afib on coumadin, s/p pacemaker placement, HTN, TIA, HLD, hypothyroidism, b/l TKR, s/p cholecystectomy here today complaining of a fall. Patient states that she slipped out of a stool two days ago and landed on her hip and has had pain in her right hip since then. Patient states that she was able to walk after the event. Denies striking head, prodromal symptoms, and syncope. Patient states that she fell because she rocked back too quicklky. Patient had another fall today while walking due to the pain in her right hip. She denies any syncopal symptoms, head trauma and neck pain. Patient states that her leg just collapsed due to the pain. Patient denies fevers, chills, nausea, vomiting, chest pain and shortness of breath. - Current Medication List Current Medications: Active Medications Acetaminophen (Tylenol -) 650 mg PO Q6H PRN PRN Reason: FEVER Heparin Sodium (Porcine) (Heparin -) 5,000 unit SQ BID [facility] Last Admin: 04/05/18 11:01 Dose: 5,000 unit Levothyroxine Sodium (Synthroid -) 50 mcg PO DAILY@0700 [facility] Last Admin: 04/05/18 06:48 Dose: 50 mcg Metoprolol Succinate (Toprol Xl -) 100 mg PO DAILY [facility] Last Admin: 04/05/18 11:02 Dose: 100 mg Morphine Sulfate (Morphine Sulfate) 2 mg IVPUSH Q4H PRN PRN Reason: PAIN LEVEL 4 - 6 Pt Own Med (Cardizem (Xt 120mg)) 1 each PO DAILY [facility] Last Admin: 04/05/18 11:01 Dose: 1 each Warfarin Sodium (Coumadin -) 5 mg PO DAILY@1800 [facility] Last Admin: 04/04/18 17:54 Dose: 5 mg - Objective Vital Signs: Vital Signs Temperature 98.1 F 04/05/18 09:00 Pulse Rate 101 H 04/05/18 09:00 Respiratory Rate 18 04/05/18 09:00 Blood Pressure 120/72 04/05/18 09:00 O2 Sat by Pulse Oximetry (%) 97 04/05/18 09:00 Eyes: Yes: WNL, Conjunctiva Clear, EOM Intact HENT: Yes: WNL, Atraumatic, Normocephalic Neck: Yes: WNL, Supple, Trachea Midline Cardiovascular: Yes: Pulse Irregular, S1, S2 Respiratory: Yes: WNL, Regular, CTA Bilaterally Gastrointestinal: Yes: WNL, Normal Bowel Sounds Genitourinary: Yes: WNL Musculoskeletal: Yes: WNL Extremities: Yes: WNL Edema: No Integumentary: Yes: WNL Neurological: Yes: WNL, Alert, Oriented ...Motor Strength: WNL Psychiatric: Yes: WNL Labs: CBC, BMP 04/04/18 06:00 04/04/18 06:00 INR, PTT INR 1.07 (0.82-1.09) 04/05/18 06:06 Assessment/Plan Problems (1) Contusion of right thigh Code(s): S70.11XA - CONTUSION OF RIGHT THIGH, INITIAL ENCOUNTER Qualifiers: Encounter type: initial encounter Qualified Code(s): S70.11XA - Contusion of right thigh, initial encounter (2) Fall Code(s): W19.XXXA - UNSPECIFIED FALL, INITIAL ENCOUNTER Qualifiers: Encounter type: sequela Qualified Code(s): W19.XXXS - Unspecified fall, sequela (3) Hematoma Code(s): T14.8XXA - OTHER INJURY OF UNSPECIFIED BODY REGION, INITIAL ENCOUNTER (4) Supratherapeutic INR Code(s): R79.1 - ABNORMAL COAGULATION PROFILE (5) Arthritis Code(s): M19.90 - UNSPECIFIED OSTEOARTHRITIS, UNSPECIFIED SITE (6) Atrial fibrillation Assessment/Plan: On metoprolol (change to ER for better 24 hour coverage). Restart warfarin when cleared by surgeon; may consider NOAC. ECHO for LVEF, chamber sizes, valve status. Keep K 4-4.5, Mg 2-2.4, PO4 2.5-3.5. TSH. Pain management. Code(s): I48.91 - UNSPECIFIED ATRIAL FIBRILLATION Qualifiers: Atrial fibrillation type: unspecified Qualified Code(s): I48.91 - Unspecified atrial fibrillation
--- NOTE | 2018-04-05 13:31 | ECHO ---
Name: CORA, JASON Exam:Adult Echocardiogram Study Date: 04/05/2018 07:19 AM Reason For Study: A-Fib Height: 62 in Weight: 114 lb BSA: 1.5 m2 MMode/2D Measurements & Calculations IVSd: 1.7 cm Ao root diam: 2.7 cm LVIDd: 3.0 cm LA dimension: 3.7 cm LVIDs: 2.4 cm LVPWd: 1.5 cm EDV(Teich): 34.8 ml LAV (MOD-bp): 97.9 ml ESV(Teich): 21.2 ml Doppler Measurements & Calculations MV E max cameron: 104.0 cm/sec AI P1/2t: 374.2 msec MV dec time: 0.18 sec AI max cameron: 442.5 cm/sec TR max cameron: 278.3 cm/sec AI max P.4 mmHg TR max P.0 mmHg AI dec slope: 346.4 cm/sec2 Med Peak E' Cameron: 4.8 cm/sec PI Vmax: 111.3 cm/sec Med E/e': 21.7 Lat Peak E' Cameron: 9.8 cm/sec Lat E/e': 10.6 Procedure A two-dimensional transthoracic echocardiogram with color flow and Doppler was performed. The patient was in atrial fibrillation with rapid ventricular response during the exam with a heart rate exceeding 100 b pm. Left Ventricle There is moderate concentric left ventricular hypertrophy. An intracavitary gradient is suspected. Up per septal hypertrophy (sigmoid septum), normal variant. The left ventricular ejection fraction is normal . The left ventricular wall motion is normal. Right Ventricle The right ventricle is not well visualized. Atria The left atrium is moderately dilated. The right atrium is moderately dilated. Mitral Valve There is mild mitral valve thickening. There is no mitral valve stenosis. There is mild to moderate m itral regurgitation. Tricuspid Valve There is mild tricuspid valve thickening. There is no tricuspid stenosis. There is moderate tricuspid regurgitation. Right ventricular systolic pressure is elevated at 40-50mmHg. Aortic Valve The aortic valve is normal in structure and function. No hemodynamically significant valvular aortic stenosis. Moderate aortic regurgitation. Pulmonic Valve The pulmonic valve is not well visualized. There is no pulmonic valvular stenosis. Trace pulmonic tamera vular regurgitation. Great Vessels The aortic root is normal size. Pericardium/Pleura There is no pericardial effusion. Interpretation Summary There is moderate concentric left ventricular hypertrophy. The left ventricular ejection fraction is normal. The left ventricular wall motion is normal. There is moderate tricuspid regurgitation. Right ventricular systolic pressure is elevated at 40-50mmHg. The left atrium is moderately dilated. The right atrium is moderately dilated. An intracavitary gradient is suspected. Upper septal hypertrophy (sigmoid septum), normal variant. Moderate aortic regurgitation. There is mild to moderate mitral regurgitation. MD Irineo Walker 04/05/2018 01:30 PM
[2018-04-05] MEDS: WARFARIN NA 5 MG TABLET (UD) PO SCH (19:00)
--- NOTE | 2018-04-05 21:13 | PN ---
Progress Note, Physician - Current Medication List Current Medications: Active Medications Acetaminophen (Tylenol -) 650 mg PO Q6H PRN PRN Reason: FEVER Heparin Sodium (Porcine) (Heparin -) 5,000 unit SQ BID [facility] Last Admin: 04/05/18 11:01 Dose: 5,000 unit Levothyroxine Sodium (Synthroid -) 50 mcg PO DAILY@0700 [facility] Last Admin: 04/05/18 06:48 Dose: 50 mcg Metoprolol Succinate (Toprol Xl -) 100 mg PO DAILY [facility] Last Admin: 04/05/18 11:02 Dose: 100 mg Morphine Sulfate (Morphine Sulfate) 2 mg IVPUSH Q4H PRN PRN Reason: PAIN LEVEL 4 - 6 Pt Own Med (Cardizem (Xt 120mg)) 1 each PO DAILY [facility] Last Admin: 04/05/18 11:01 Dose: 1 each Warfarin Sodium (Coumadin -) 5 mg PO DAILY@1800 [facility] Last Admin: 04/05/18 19:00 Dose: 5 mg - Objective Vital Signs: Vital Signs Temperature 98.4 F 04/05/18 19:00 Pulse Rate 107 H 04/05/18 19:00 Respiratory Rate 19 04/05/18 19:00 Blood Pressure 128/82 04/05/18 19:00 O2 Sat by Pulse Oximetry (%) 97 04/05/18 09:00 Constitutional: Yes: Calm HENT: Yes: Atraumatic Neck: Yes: Supple Cardiovascular: Yes: Regular Rate and Rhythm Respiratory: Yes: CTA Bilaterally Gastrointestinal: Yes: Normal Bowel Sounds Extremities: Yes: Other (R thigh hematoma resolving) Neurological: Yes: Alert, Oriented Labs: CBC, BMP 04/04/18 06:00 04/04/18 06:00 INR, PTT INR 1.07 (0.82-1.09) 04/05/18 06:06 Problem List - Problems (1) Hematoma Assessment/Plan: R franca monitor on coumadin daily pt/inr when inr 2 and above ..dc Code(s): T14.8XXA - OTHER INJURY OF UNSPECIFIED BODY REGION, INITIAL ENCOUNTER (2) Supratherapeutic INR Code(s): R79.1 - ABNORMAL COAGULATION PROFILE (3) HTN (hypertension) Assessment/Plan: on meds stable Code(s): I10 - ESSENTIAL (PRIMARY) HYPERTENSION Qualifiers: Hypertension type: essential hypertension Qualified Code(s): I10 - Essential (primary) hypertension (4) Hyperlipidemia Code(s): E78.5 - HYPERLIPIDEMIA, UNSPECIFIED Qualifiers: Hyperlipidemia type: unspecified Qualified Code(s): E78.5 - Hyperlipidemia , unspecified (5) Fall Assessment/Plan: tripped and fell pt eval Code(s): W19.XXXA - UNSPECIFIED FALL, INITIAL ENCOUNTER Qualifiers: Encounter type: sequela Qualified Code(s): W19.XXXS - Unspecified fall, sequela
[2018-04-06] MEDS: LEVOTHYROXINE NA 50 MCG TABLET (FP) PO SCH (06:09)
[2018-04-06 07:20] LABS: INR 1.55 (0.82-1.09); PROTHROMBIN TIME (PATIENT) 17.5 SEC (9.7-13.0)
[2018-04-06] MEDS ORDERED: PT OWN MED DRAWER 7, Y5N ONE ×2 (11:14→19:17)
[2018-04-06] MEDS: HEPARIN NA (PORCINE) 5,000 UNITS/ML 1ML VIAL SQ SCH ×2 (11:17→21:49)
[2018-04-06] MEDS: [UNRECOGNIZED DRUG - OTHER] PO SCH (11:18)
--- NOTE | 2018-04-06 16:22 | PN ---
Progress Note, Physician - Current Medication List Current Medications: Active Medications Acetaminophen (Tylenol -) 650 mg PO Q6H PRN PRN Reason: FEVER Heparin Sodium (Porcine) (Heparin -) 5,000 unit SQ BID [facility] Last Admin: 04/06/18 11:17 Dose: 5,000 unit Levothyroxine Sodium (Synthroid -) 50 mcg PO DAILY@0700 [facility] Last Admin: 04/06/18 06:09 Dose: 50 mcg Metoprolol Succinate (Toprol Xl -) 100 mg PO DAILY [facility] Last Admin: 04/06/18 11:18 Dose: 100 mg Morphine Sulfate (Morphine Sulfate) 2 mg IVPUSH Q4H PRN PRN Reason: PAIN LEVEL 4 - 6 Pt Own Med (Cardizem (Xt 120mg)) 1 each PO DAILY [facility] Last Admin: 04/06/18 11:18 Dose: 1 each Warfarin Sodium (Coumadin -) 5 mg PO DAILY@1800 [facility] Last Admin: 04/05/18 19:00 Dose: 5 mg - Objective Vital Signs: Vital Signs Temperature 98.6 F 04/06/18 15:38 Pulse Rate 102 H 04/06/18 15:38 Respiratory Rate 22 04/06/18 15:38 Blood Pressure 122/72 04/06/18 15:38 O2 Sat by Pulse Oximetry (%) 97 04/06/18 09:00 Constitutional: Yes: No Distress HENT: Yes: Atraumatic Neck: Yes: Supple Cardiovascular: Yes: Regular Rate and Rhythm Respiratory: Yes: CTA Bilaterally Gastrointestinal: Yes: Normal Bowel Sounds Extremities: Yes: Other (R thigh hematoma resolving) Neurological: Yes: Alert, Oriented Labs: CBC, BMP 04/04/18 06:00 04/04/18 06:00 INR, PTT INR 1.55 (0.82-1.09) H D 04/06/18 06:30 Problem List - Problems (1) Hematoma Assessment/Plan: R franca...resolving monitor start coumadin daily pt/inr surgical consult noted Code(s): T14.8XXA - OTHER INJURY OF UNSPECIFIED BODY REGION, INITIAL ENCOUNTER (2) Supratherapeutic INR Code(s): R79.1 - ABNORMAL COAGULATION PROFILE (3) HTN (hypertension) Assessment/Plan: on meds stable Code(s): I10 - ESSENTIAL (PRIMARY) HYPERTENSION Qualifiers: Hypertension type: essential hypertension Qualified Code(s): I10 - Essential (primary) hypertension (4) Hyperlipidemia Code(s): E78.5 - HYPERLIPIDEMIA, UNSPECIFIED Qualifiers: Hyperlipidemia type: unspecified Qualified Code(s): E78.5 - Hyperlipidemia , unspecified (5) Fall Assessment/Plan: tripped and fell pt eval Code(s): W19.XXXA - UNSPECIFIED FALL, INITIAL ENCOUNTER Qualifiers: Encounter type: sequela Qualified Code(s): W19.XXXS - Unspecified fall, sequela
[2018-04-06] MEDS: WARFARIN NA 5 MG TABLET (UD) PO SCH (18:40)
[2018-04-07] MEDS: LEVOTHYROXINE NA 50 MCG TABLET (FP) PO SCH (06:11)
[2018-04-07 07:16] LABS: INR 1.78 (0.82-1.09); PROTHROMBIN TIME (PATIENT) 20.1 SEC (9.7-13.0)
[2018-04-07] MEDS ORDERED: PT OWN MED DRAWER 7, Y5N ONE (09:55)
[2018-04-07] MEDS: HEPARIN NA (PORCINE) 5,000 UNITS/ML 1ML VIAL SQ SCH ×2 (10:02→21:04)
[2018-04-07] MEDS: [UNRECOGNIZED DRUG - OTHER] PO SCH (10:05)
--- NOTE | 2018-04-07 11:50 | PN ---
Progress Note, Physician Chief Complaint: Pt feels better; no chest pain or palpitations. History of Present Illness: Patient is an 87 white woman with history of afib on coumadin, s/p pacemaker placement, HTN, TIA, HLD, hypothyroidism, b/l TKR, s/p cholecystectomy here today complaining of a fall. Patient states that she slipped out of a stool two days ago and landed on her hip and has had pain in her right hip since then. Patient states that she was able to walk after the event. Denies striking head, prodromal symptoms, and syncope. Patient states that she fell because she rocked back too quickly. Patient had another fall today while walking due to the pain in her right hip. She denies any syncopal symptoms, head trauma and neck pain. Patient states that her leg just collapsed due to the pain. Patient denies fevers, chills, nausea, vomiting, chest pain and shortness of breath. - Current Medication List Current Medications: Active Medications Acetaminophen (Tylenol -) 650 mg PO Q6H PRN PRN Reason: FEVER Heparin Sodium (Porcine) (Heparin -) 5,000 unit SQ BID [facility] Last Admin: 04/07/18 10:02 Dose: 5,000 unit Levothyroxine Sodium (Synthroid -) 50 mcg PO DAILY@0700 [facility] Last Admin: 04/07/18 06:11 Dose: 50 mcg Metoprolol Succinate (Toprol Xl -) 100 mg PO DAILY [facility] Last Admin: 04/07/18 10:06 Dose: 100 mg Pt Own Med (Cardizem (Xt 120mg)) 1 each PO DAILY [facility] Last Admin: 04/07/18 10:05 Dose: 1 each Warfarin Sodium (Coumadin -) 5 mg PO DAILY@1800 [facility] Last Admin: 04/06/18 18:40 Dose: 5 mg - Objective Vital Signs: Vital Signs Temperature 98.8 F 04/07/18 05:50 Pulse Rate 104 H 04/07/18 05:50 Respiratory Rate 20 04/07/18 05:50 Blood Pressure 152/92 04/07/18 05:50 O2 Sat by Pulse Oximetry (%) 97 04/06/18 22:00 Labs: CBC, BMP 04/04/18 06:00 04/04/18 06:00 INR, PTT INR 1.78 (0.82-1.09) H 04/07/18 06:30 Problem List - Problems (1) Contusion of right thigh Code(s): S70.11XA - CONTUSION OF RIGHT THIGH, INITIAL ENCOUNTER Qualifiers: Encounter type: initial encounter Qualified Code(s): S70.11XA - Contusion of right thigh, initial encounter (2) Fall Assessment/Plan: denies syncope; attributed to joint and muscle weakness. F/u with surgeon, physical therapist. Code(s): W19.XXXA - UNSPECIFIED FALL, INITIAL ENCOUNTER Qualifiers: Encounter type: sequela Qualified Code(s): W19.XXXS - Unspecified fall, sequela (3) Hematoma Code(s): T14.8XXA - OTHER INJURY OF UNSPECIFIED BODY REGION, INITIAL ENCOUNTER (4) Supratherapeutic INR Code(s): R79.1 - ABNORMAL COAGULATION PROFILE (5) Arthritis Code(s): M19.90 - UNSPECIFIED OSTEOARTHRITIS, UNSPECIFIED SITE (6) Atrial fibrillation Assessment/Plan: On metoprolol (change to ER for better 24 hour coverage). Restart warfarin when cleared by surgeon; may consider NOAC. Normal LVEF by ECHO; moderately dilated atriae; moderate AR and TR; mild- moderate MR. Keep K 4-4.5, Mg 2-2.4, PO4 2.5-3.5. TSH: WNL (on Synthroid). Pain management. On warfarin; keep INR 2-3. Code(s): I48.91 - UNSPECIFIED ATRIAL FIBRILLATION Qualifiers: Atrial fibrillation type: unspecified Qualified Code(s): I48.91 - Unspecified atrial fibrillation
--- NOTE | 2018-04-07 11:59 | PN ---
Progress Note, Physician - Current Medication List Current Medications: Active Medications Acetaminophen (Tylenol -) 650 mg PO Q6H PRN PRN Reason: FEVER Heparin Sodium (Porcine) (Heparin -) 5,000 unit SQ BID [facility] Last Admin: 04/07/18 10:02 Dose: 5,000 unit Levothyroxine Sodium (Synthroid -) 50 mcg PO DAILY@0700 [facility] Last Admin: 04/07/18 06:11 Dose: 50 mcg Metoprolol Succinate (Toprol Xl -) 100 mg PO DAILY [facility] Last Admin: 04/07/18 10:06 Dose: 100 mg Pt Own Med (Cardizem (Xt 120mg)) 1 each PO DAILY [facility] Last Admin: 04/07/18 10:05 Dose: 1 each Warfarin Sodium (Coumadin -) 5 mg PO DAILY@1800 [facility] Last Admin: 04/06/18 18:40 Dose: 5 mg - Objective Vital Signs: Vital Signs Temperature 98.8 F 04/07/18 05:50 Pulse Rate 104 H 04/07/18 05:50 Respiratory Rate 20 04/07/18 05:50 Blood Pressure 152/92 04/07/18 05:50 O2 Sat by Pulse Oximetry (%) 97 04/06/18 22:00 Constitutional: Yes: No Distress HENT: Yes: Atraumatic Neck: Yes: Supple Cardiovascular: Yes: Regular Rate and Rhythm Respiratory: Yes: CTA Bilaterally Gastrointestinal: Yes: Normal Bowel Sounds Extremities: Yes: Other (R thig hematoma resolving) Edema: No Neurological: Yes: Alert, Oriented Labs: CBC, BMP 04/04/18 06:00 04/04/18 06:00 INR, PTT INR 1.78 (0.82-1.09) H 04/07/18 06:30 Problem List - Problems (1) Hematoma Assessment/Plan: R franca monitor on coumadin daily pt/inr when inr 2 and above ..dc Code(s): T14.8XXA - OTHER INJURY OF UNSPECIFIED BODY REGION, INITIAL ENCOUNTER (2) Supratherapeutic INR Code(s): R79.1 - ABNORMAL COAGULATION PROFILE (3) HTN (hypertension) Assessment/Plan: on meds stable Code(s): I10 - ESSENTIAL (PRIMARY) HYPERTENSION Qualifiers: Hypertension type: essential hypertension Qualified Code(s): I10 - Essential (primary) hypertension (4) Hyperlipidemia Code(s): E78.5 - HYPERLIPIDEMIA, UNSPECIFIED Qualifiers: Hyperlipidemia type: unspecified Qualified Code(s): E78.5 - Hyperlipidemia , unspecified (5) Fall Code(s): W19.XXXA - UNSPECIFIED FALL, INITIAL ENCOUNTER Qualifiers: Encounter type: sequela Qualified Code(s): W19.XXXS - Unspecified fall, sequela
--- NOTE | 2018-04-07 13:02 | PN ---
Progress Note, Physician History of Present Illness: Patient is an 87 white woman with history of afib on coumadin, s/p pacemaker placement, HTN, TIA, HLD, hypothyroidism, b/l TKR, s/p cholecystectomy here today complaining of a fall. Patient states that she slipped out of a stool two days ago and landed on her hip and has had pain in her right hip since then. Patient states that she was able to walk after the event. Denies striking head, prodromal symptoms, and syncope. Patient states that she fell because she rocked back too quicklky. Patient had another fall today while walking due to the pain in her right hip. She denies any syncopal symptoms, head trauma and neck pain. Patient states that her leg just collapsed due to the pain. Patient denies fevers, chills, nausea, vomiting, chest pain and shortness of breath. - Current Medication List Current Medications: Active Medications Acetaminophen (Tylenol -) 650 mg PO Q6H PRN PRN Reason: FEVER Heparin Sodium (Porcine) (Heparin -) 5,000 unit SQ BID [facility] Last Admin: 04/07/18 10:02 Dose: 5,000 unit Levothyroxine Sodium (Synthroid -) 50 mcg PO DAILY@0700 [facility] Last Admin: 04/07/18 06:11 Dose: 50 mcg Metoprolol Succinate (Toprol Xl -) 100 mg PO DAILY [facility] Last Admin: 04/07/18 10:06 Dose: 100 mg Pt Own Med (Cardizem (Xt 120mg)) 1 each PO DAILY [facility] Last Admin: 04/07/18 10:05 Dose: 1 each Warfarin Sodium (Coumadin -) 5 mg PO DAILY@1800 [facility] Last Admin: 04/06/18 18:40 Dose: 5 mg - Objective Vital Signs: Vital Signs Temperature 98.8 F 04/07/18 05:50 Pulse Rate 104 H 04/07/18 05:50 Respiratory Rate 20 04/07/18 05:50 Blood Pressure 152/92 04/07/18 05:50 O2 Sat by Pulse Oximetry (%) 97 04/06/18 22:00 Eyes: Yes: WNL, Conjunctiva Clear, EOM Intact HENT: Yes: WNL, Atraumatic, Normocephalic Neck: Yes: WNL, Supple, Trachea Midline Cardiovascular: Yes: Pulse Irregular, S1, S2 Respiratory: Yes: WNL, Regular, CTA Bilaterally Gastrointestinal: Yes: WNL, Normal Bowel Sounds Genitourinary: Yes: WNL Musculoskeletal: Yes: WNL Extremities: Yes: WNL Edema: No Integumentary: Yes: WNL Neurological: Yes: WNL, Alert, Oriented ...Motor Strength: WNL Psychiatric: Yes: WNL Labs: CBC, BMP 04/04/18 06:00 04/04/18 06:00 INR, PTT INR 1.78 (0.82-1.09) H 04/07/18 06:30
[2018-04-07] MEDS: WARFARIN NA 5 MG TABLET (UD) PO SCH (17:22)
[2018-04-08] MEDS: LEVOTHYROXINE NA 50 MCG TABLET (FP) PO SCH (06:11)
[2018-04-08 07:18] LABS: BASO % 1.1 % (0-2.0); EOS % 2.1 % (0-4.5); HEMATOCRIT 25.2 % (32.4-45.2); HEMOGLOBIN 8.8 GM/dL (10.7-15.3); LYMPH % 17.4 % (8-40); MCH 34.3 pg (25.7-33.7); MEAN CELL VOLUME 98.1 fl (80-96); MEAN PLT VOLUME 8.6 fl (7.5-11.1); NEUT % 69.4 % (42.8-82.8); PLATELET COUNT 269 K/MM3 (134-434); RBC 2.57 M/mm3 (3.60-5.2); RDW 13.3 % (11.6-15.6); WHITE BLOOD COUNT 7.4 K/mm3 (4.0-10.0)
[2018-04-08 07:33] LABS: ALBUMIN 3.1 g/dl (3.4-5.0); BLOOD UREA NITROGEN 15 mg/dL (7-18); CALCIUM 8.7 mg/dL (8.5-10.1); CHLORIDE 100 mmol/L (98-107); CO2 31 mmol/L (21-32); CREATININE 0.6 mg/dL (0.55-1.02)
[2018-04-08 07:34] LABS: INR 1.82 (0.82-1.09); PROTHROMBIN TIME (PATIENT) 20.6 SEC (9.7-13.0); TOT PROT 5.9 g/dl (6.4-8.2)
[2018-04-08 09:40] LABS: ANION GAP 8 (8-16); GLUCOSE,RANDOM 96 mg/dL (74-106); POTASSIUM 3.8 mmol/L (3.5-5.1); SODIUM 139 mmol/L (136-145)
[2018-04-08 09:41] LABS: ALK PHOS 73 U/L (45-117); SGOT/AST 28 U/L (15-37); SGPT/ALT 29 U/L (12-78)
[2018-04-08] MEDS: HEPARIN NA (PORCINE) 5,000 UNITS/ML 1ML VIAL SQ SCH ×2 (09:52→21:45)
[2018-04-08] MEDS: [UNRECOGNIZED DRUG - OTHER] PO SCH (09:52)
--- NOTE | 2018-04-08 12:08 | PN ---
Progress Note, Physician - Current Medication List Current Medications: Active Medications Acetaminophen (Tylenol -) 650 mg PO Q6H PRN PRN Reason: FEVER Heparin Sodium (Porcine) (Heparin -) 5,000 unit SQ BID [facility] Last Admin: 04/08/18 09:52 Dose: 5,000 unit Levothyroxine Sodium (Synthroid -) 50 mcg PO DAILY@0700 [facility] Last Admin: 04/08/18 06:11 Dose: 50 mcg Metoprolol Succinate (Toprol Xl -) 100 mg PO DAILY [facility] Last Admin: 04/08/18 09:52 Dose: 100 mg Pt Own Med (Cardizem (Xt 120mg)) 1 each PO DAILY [facility] Last Admin: 04/08/18 09:52 Dose: 1 each Warfarin Sodium (Coumadin -) 5 mg PO DAILY@1800 [facility] Last Admin: 04/07/18 17:22 Dose: 5 mg - Objective Vital Signs: Vital Signs Temperature 98.0 F 04/08/18 08:00 Pulse Rate 95 H 04/08/18 08:00 Respiratory Rate 18 04/08/18 08:00 Blood Pressure 106/60 04/08/18 08:00 O2 Sat by Pulse Oximetry (%) 96 04/07/18 20:09 HENT: Yes: Atraumatic Neck: Yes: Supple Cardiovascular: Yes: Regular Rate and Rhythm Respiratory: Yes: CTA Bilaterally Gastrointestinal: Yes: Normal Bowel Sounds Extremities: Yes: WNL, Other (R franca hematoma resolving) Neurological: Yes: Alert, Oriented Labs: CBC, BMP 04/08/18 06:15 04/08/18 06:15 INR, PTT INR 1.82 (0.82-1.09) H 04/08/18 06:15 Problem List - Problems (1) Hematoma Assessment/Plan: R franca monitor on coumadin daily pt/inr when inr 2 and above ..dc Code(s): T14.8XXA - OTHER INJURY OF UNSPECIFIED BODY REGION, INITIAL ENCOUNTER (2) Supratherapeutic INR Code(s): R79.1 - ABNORMAL COAGULATION PROFILE (3) HTN (hypertension) Assessment/Plan: on meds stable Code(s): I10 - ESSENTIAL (PRIMARY) HYPERTENSION Qualifiers: Hypertension type: essential hypertension Qualified Code(s): I10 - Essential (primary) hypertension (4) Hyperlipidemia Code(s): E78.5 - HYPERLIPIDEMIA, UNSPECIFIED Qualifiers: Hyperlipidemia type: unspecified Qualified Code(s): E78.5 - Hyperlipidemia , unspecified (5) Fall Code(s): W19.XXXA - UNSPECIFIED FALL, INITIAL ENCOUNTER Qualifiers: Encounter type: sequela Qualified Code(s): W19.XXXS - Unspecified fall, sequela
[2018-04-08] MEDS: WARFARIN NA 5 MG TABLET (UD) PO SCH (17:05)
[2018-04-09] MEDS: LEVOTHYROXINE NA 50 MCG TABLET (FP) PO SCH (06:18)
[2018-04-09 07:18] LABS: HEMATOCRIT 24.2 % (32.4-45.2); HEMOGLOBIN 8.4 GM/dL (10.7-15.3); MCH 34.1 pg (25.7-33.7); MCHC 34.8 g/dl (32.0-36.0); MEAN PLT VOLUME 8.5 fl (7.5-11.1); PLATELET COUNT 271 K/MM3 (134-434); RBC 2.47 M/mm3 (3.60-5.2); RDW 13.7 % (11.6-15.6); WHITE BLOOD COUNT 6.3 K/mm3 (4.0-10.0)
[2018-04-09 07:38] LABS: INR 1.8 (0.82-1.09); PROTHROMBIN TIME (PATIENT) 20.3 SEC (9.7-13.0)
[2018-04-09] MEDS ORDERED: PT OWN MED DRAWER 7, Y5N ONE ×2 (09:58→14:32)
[2018-04-09] MEDS: [UNRECOGNIZED DRUG - OTHER] PO SCH (10:00)
[2018-04-09] MEDS: HEPARIN NA (PORCINE) 5,000 UNITS/ML 1ML VIAL SQ SCH (10:00)
[2018-04-09] MEDS ORDERED: POLYETHYLENE GLYCOL 3350 119 GM BTL PO ONE (11:30)
[2018-04-09] MEDS ORDERED: WARFARIN NA 3 MG TABLET PO ONE (11:31)
--- NOTE | 2018-04-09 11:33 | PN ---
Progress Note, Physician - Current Medication List Current Medications: Active Medications Acetaminophen (Tylenol -) 650 mg PO Q6H PRN PRN Reason: FEVER Heparin Sodium (Porcine) (Heparin -) 5,000 unit SQ BID [facility] Last Admin: 04/09/18 10:00 Dose: 5,000 unit Levothyroxine Sodium (Synthroid -) 50 mcg PO DAILY@0700 [facility] Last Admin: 04/09/18 06:18 Dose: 50 mcg Metoprolol Succinate (Toprol Xl -) 100 mg PO DAILY [facility] Last Admin: 04/09/18 10:00 Dose: 100 mg Pt Own Med (Cardizem (Xt 120mg)) 1 each PO DAILY [facility] Last Admin: 04/09/18 10:00 Dose: 1 each Warfarin Sodium (Coumadin -) 5 mg PO DAILY@1800 [facility] Last Admin: 04/08/18 17:05 Dose: 5 mg Warfarin Sodium (Coumadin -) 3 mg PO NOW ONE Stop: 04/09/18 11:32 - Objective Vital Signs: Vital Signs Temperature 98.1 F 04/09/18 08:32 Pulse Rate 98 H 04/09/18 08:32 Respiratory Rate 18 04/09/18 09:00 Blood Pressure 110/60 04/09/18 08:32 O2 Sat by Pulse Oximetry (%) 97 04/09/18 09:00 Labs: CBC, BMP 04/09/18 06:10 04/08/18 06:15 INR, PTT INR 1.80 (0.82-1.09) H 04/09/18 06:10 Problem List - Problems (1) Hematoma Code(s): T14.8XXA - OTHER INJURY OF UNSPECIFIED BODY REGION, INITIAL ENCOUNTER (2) Supratherapeutic INR Code(s): R79.1 - ABNORMAL COAGULATION PROFILE (3) HTN (hypertension) Code(s): I10 - ESSENTIAL (PRIMARY) HYPERTENSION Qualifiers: Hypertension type: essential hypertension Qualified Code(s): I10 - Essential (primary) hypertension (4) Hyperlipidemia Code(s): E78.5 - HYPERLIPIDEMIA, UNSPECIFIED Qualifiers: Hyperlipidemia type: unspecified Qualified Code(s): E78.5 - Hyperlipidemia , unspecified (5) Fall Code(s): W19.XXXA - UNSPECIFIED FALL, INITIAL ENCOUNTER Qualifiers: Encounter type: sequela Qualified Code(s): W19.XXXS - Unspecified fall, sequela Assessment/Plan give extra 3 mg today so total of 8 mg dc home fu inr and cbc with pmd tomorrow
[2018-04-09] MEDS ORDERED: WARFARIN NA 5 MG, WARFARIN NA 3 MG PO ONE (12:00)
[2018-04-09] MEDS ORDERED: WARFARIN NA 3 MG TABLET ONE (12:16)
[2018-04-09] MEDS ORDERED: WARFARIN NA 5 MG TABLET (UD) ONE (12:16)
[2018-04-09 14:30] VITALS: BP 103/64; PULSE 93; TEMP 98.4
--- NOTE | 2018-04-09 18:19 | DS ---
Physical Examination Vital Signs: Vital Signs Temperature 98.4 F 04/09/18 14:28 Pulse Rate 93 H 04/09/18 14:28 Respiratory Rate 18 04/09/18 14:28 Blood Pressure 103/64 04/09/18 14:28 O2 Sat by Pulse Oximetry (%) 97 04/09/18 09:00 Constitutional: Yes: No Distress HENT: Yes: Atraumatic Neck: Yes: Supple Cardiovascular: Yes: Regular Rate and Rhythm Respiratory: Yes: CTA Bilaterally Gastrointestinal: Yes: Normal Bowel Sounds Extremities: Yes: Other (hematoma resolving) Neurological: Yes: Alert, Oriented Labs: CBC, BMP 04/09/18 06:10 04/08/18 06:15 Discharge Summary Reason For Visit: HEMATOMA; SUPRATHERAPEUTIC INR Condition: Stable - Instructions Diet, Activity, Other Instructions: follow up inr with pmd on tuesday..... folow up cbc tomorrow with pmd Referrals: Edd Montes MD [Staff Physician] - Geno Salvador MD [Staff Physician] - Disposition: HOME - Home Medications Comprehensive Discharge Medication List: Ambulatory Orders Diltiazem Cd [Cardizem Cd -] 120 04/03/18 Levothyroxine Sodium [Levo-T] 50 mcg PO 04/03/18 Metoprolol Succinate [Toprol XL -] 100 mg PO DAILY #30 tab.sr.24h 04/09/18 Metoprolol Succinate [Toprol Xl] 100 mg PO DAILY 30 Days tab.er.24h 04/09/18 Warfarin Na [Coumadin -] 5 mg PO DAILY@1800 #30 tablet 04/09/18 mo home send prescription for walker
== END 2018-04-09 16:45 | disposition home or self-care (01) | DRG 813 ==
LOC: JER 13:47 → JERBED 16:48 → J6S 18:45
PROVIDERS: ADMIT Internal Medicine; ATTEND Internal Medicine
DX: D68.32 Hemorrhagic disorder due to extrinsic circulating anticoagulants (principal); S70.11XA Contusion of right thigh, initial encounter; T45.515A Adverse effect of anticoagulants, initial encounter; I10 Essential (primary) hypertension; I48.91 Unspecified atrial fibrillation; Z79.01 Long term (current) use of anticoagulants; Z86.73 Personal history of transient ischemic attack (TIA), and cerebral infarction without residual deficits; E78.5 Hyperlipidemia, unspecified; E03.9 Hypothyroidism, unspecified; S50.811A Abrasion of right forearm, initial encounter; S60.811A Abrasion of right wrist, initial encounter; W17.89XA Other fall from one level to another, initial encounter; Y93.89 Activity, other specified; Y92.038 Other place in apartment as the place of occurrence of the external cause; Y99.8 Other external cause status; Z95.0 Presence of cardiac pacemaker; Z96.653 Presence of artificial knee joint, bilateral; F41.9 Anxiety disorder, unspecified; M19.90 Unspecified osteoarthritis, unspecified site
CPT/HCPCS: 36415; 36430; 70450-TC; 71045-TC-FY; 73523-TC-FY; 73552-TC-RT-FY; 73700-TC-RT; 80048; 80053; 82550; 83735; 84100; 84443; 84484; 85025; 85027; 85610; 85730; 86850; 86900; 86901; 93005; 93010; 93306-TC; 97116-GP; 97161-GP; 99284-25; J1644; P9017